=== PATIENT | female | born 1960 | race Caucasian/White ===

== ENCOUNTER → 2017-01-22 | Outpatient (CLI) | payer BC ==
[2017-01-22 13:50] LABS: CHOLESTEROL/HDL RATIO 5.8; THYROID STIMULATING HORMONE 2.82 uIu/ml (0.300-4.500)
== END | disposition home or self-care (01) ==
LOC: C.LABMFLN 07:50
PROVIDERS: ATTEND Family Medicine
DX: Z00.00 Encounter for general adult medical examination without abnormal findings (principal); Z13.220 Encounter for screening for lipoid disorders; Z13.1 Encounter for screening for diabetes mellitus; R53.83 Other fatigue